=== PATIENT | male | born 1955 | race Caucasian/White ===

== ENCOUNTER → 2020-09-24 | Outpatient (CLI) | payer BC, OTHER | LOC: EXRD 09-23 13:45 → KOH-I 15:02 | DX: R09.89 Other specified symptoms and signs involving the circulatory and respiratory systems (principal) | CPT/HCPCS: 93880 ==

== ENCOUNTER → 2020-10-02 | Outpatient (CLI) | payer BC, OTHER | LOC: CT 11:01 | DX: I65.23 Occlusion and stenosis of bilateral carotid arteries (principal) | CPT/HCPCS: 70498; Q9967 ==

== ENCOUNTER → 2021-09-08 | Outpatient (CLI) | payer BC | LOC: KOH-I 12:39 | DX: M25.562 Pain in left knee (principal); S83.242A Other tear of medial meniscus, current injury, left knee, initial encounter; M25.462 Effusion, left knee; M67.462 Ganglion, left knee | CPT/HCPCS: 73721 ==